=== PATIENT | male | born 1970 | race African-American/Black ===

== ENCOUNTER 2016-06-17 23:42 | Inpatient (IN) | payer MEDICARE, MEDICAID ==
[~2016-06-17] VITALS: Ht 185.4 cm; Wt 74.5 kg
[~2016-06-17 23:42] MED LIST: ASCO500T11 PO; MORP1TAB13 PO; NOR5T PO; OXYB5TAB62 PO; PAR20T PO; POLY33504 PO; SENN8.6T15 PO; TEMA7.5C11 PO
[2016-06-18 01:14] LABS: DEFINITIVE VIEW TRANSMISSION; Eosinophils # (auto) 0.1 uL; Eosinophils % (auto) 0.9 % (0.0-7.0); Hemoglobin 10.1 g/dL (13.5-17.5); Monocytes # (auto) 0.2 uL; Red Cell Distribution Width 17.3 % (11.6-16.0); SUSPECT VIEW TRANSMISSION
[2016-06-18 01:35] LABS: Albumin 2.4 g/dL (3.4-5.0)
[2016-06-18 01:40] LABS: Basophils # (auto) 0.7 uL; Basophils % (auto) 7.2 % (0.0-2.0); Hematocrit 33.2 % (41.0-53.0); Lymphocytes # (auto) 2.6 uL; Lymphocytes % (auto) 26.9 % (10.0-50.0); Mean Corpuscular Hemoglobin 21.5 pg (28.0-32.0); Mean Corpuscular Hgb Conc. 30.4 g/dL (32.0-36.0); Mean Corpuscular Volume 70.9 fL (80.0-100.0); Mean Platelet Volume 7.4 fL (7.4-10.4); Monocytes % (auto) 1.6 % (0.0-12.0); Neutrophils # (auto) 6.1 uL; Neutrophils % (auto) 63.4 % (37.0-80.0); White Blood Cell 9.7 10^3/uL (4.4-10.8)
[2016-06-18 01:43] LABS: Bilirubin, Total 0.2 mg/dL (0.2-1.0); Magnesium 2.2 mg/dL (1.6-2.6); Potassium 2.9 mmol/L (3.5-5.1); Total Protein 7.9 g/dL (6.4-8.2)
[2016-06-18 01:58] LABS: Platelet Count (auto) 967 10^3/uL (140-450)
[2016-06-18] MEDS ORDERED: POTASSIUM CHL 20 Meq TABLET PO ONE (02:30)
[2016-06-18] MEDS ORDERED: ACETAMINOPHEN 500 MG TAB PO ONE (07:30)
[2016-06-18] MEDS ORDERED: KETOROLAC TROMETH 30 MG/ML 1ML VIAL IV ONE (07:30)
[2016-06-18] MEDS ORDERED: SODIUM CHLORIDE 0.9% 1,000 ML IV ONE (07:30)
[2016-06-18 08:23] LABS: Urine Bilirubin Negative (Negative); Urine Blood 2+ /uL (Negative); Urine Color Yellow (Yellow); Urine Glucose Normal (Normal); Urine Hyaline Cast FEW /lpf (0 - 2); Urine Ketone Negative (Negative); Urine Nitrite Negative (Negative); Urine RBC 37 /hpf (0 - 3); Urine Squamous Epithelial Cell FEW /hpf (<5); Urine WBC Clumps PRESENT /hpf (None Seen); Urine pH 5.5 (5.0-8.0)
[2016-06-18] MEDS ORDERED: FLEET MINERAL OIL ENEMA 133 ML PR ONE (11:30)
[2016-06-18] MEDS ORDERED: cefTRIAXone 1GM/50ML D5W 50 ML IV ONE (11:30)
[2016-06-18] MEDS ORDERED: VANCOMYCIN PER PHARMACY 0 MG IV SCH (11:30)
[2016-06-18] MEDS: SODIUM CHLORIDE 0.9% 1,000 ML IV SCH (11:33)
[2016-06-18] MEDS ORDERED: ACETAMINOPHEN 325 MG TAB PO PRN (11:45)
[2016-06-18] MEDS ORDERED: TEMAZEPAM 15 MG CAP PO PRN (11:45)
[2016-06-18] MEDS ORDERED: ONDANSETRON HCL 4 MG/2 ML VIAL IV PRN (11:45)
[2016-06-18] MEDS ORDERED: PARoxetine 20 MG TAB PO ONE (12:00)
[2016-06-18] MEDS ORDERED: VANCOMYCIN 1GM/250ML D5W 250 ML IV SCH ×2 (13:00)
[2016-06-18 13:26] VITALS: BP_SYST 80; BP_SYST 85; BP_DIAS 51; BP_DIAS 52
[2016-06-18] MEDS: HYDROcodone-ACET 5/325MG TAB PO PRN ×2 (14:14→19:34)
[2016-06-18 15:23] VITALS: BP 82/54
[2016-06-18] MEDS: VANCOMYCIN 1GM/250ML D5W 250 ML IV SCH (17:02)
[2016-06-18 21:39] VITALS: BP 101/76
[2016-06-18] MEDS: MORPHINE SULF 30 mg ER tab PO SCH (22:00)
[2016-06-18] MEDS: ASCORBIC ACID 500 MG TAB PO SCH (22:56)
[2016-06-19] MEDS: VANCOMYCIN 1GM/250ML D5W 250 ML IV SCH ×2 (04:04→16:00)
[2016-06-19] MEDS: SODIUM CHLORIDE 0.9% 1,000 ML IV SCH ×2 (04:13→22:26)
[2016-06-19 04:36] VITALS: BP 101/66
[2016-06-19 06:20] LABS: Alkaline Phosphatase 122 U/L (45-117); Anion Gap 11 (5-15); Aspartate Aminotransferase 11 U/L (15-37); BUN/Creatinine Ratio 21.8; Bilirubin, Total 0.3 mg/dL (0.2-1.0); Blood Urea Nitrogen 12 mg/dL (7-18); Calcium 7.9 mg/dL (8.5-10.1); Carbon Dioxide 24 mmol/L (21-32); Chloride 105 mmol/L (98-107); GFR African American 207 mL/min; GFR Non-African American 171 mL/min; Glucose 72 mg/dL (74-106); Potassium 3.2 mmol/L (3.5-5.1); Sodium 140 mmol/L (136-145); Total Protein 6.4 g/dL (6.4-8.2)
[2016-06-19 08:00] VITALS: BP 90/66
[2016-06-19 08:39] LABS: DEFINITIVE VIEW TRANSMISSION; Hematocrit 27.6 % (41.0-53.0); Hemoglobin 8.6 g/dL (13.5-17.5); Mean Corpuscular Hemoglobin 21.9 pg (28.0-32.0); Mean Corpuscular Hgb Conc. 30.9 g/dL (32.0-36.0); Mean Corpuscular Volume 70.8 fL (80.0-100.0); Mean Platelet Volume 7.5 fL (7.4-10.4); Platelet Count (auto) 613 10^3/uL (140-450); Red Cell Distribution Width 19.3 % (11.6-16.0); SUSPECT VIEW TRANSMISSION
[2016-06-19 08:45] LABS: White Blood Cell 42.9 10^3/uL (4.4-10.8)
[2016-06-19 08:46] LABS: Metamyelocytes % 0; Myelocytes % 0; Promyelocytes % 0; Reactive Lymphocytes 0
[2016-06-19] MEDS ORDERED: cefTRIAXone 1GM/50ML D5W 50 ML IV SCH (09:00)
[2016-06-19 09:20] LABS: Hypochromia Slight; Platelet Estimate Markedly Increased
[2016-06-19] MEDS: POLYETHYLENE GLYCOL 17GM PWDR PO SCH (10:00)
[2016-06-19] MEDS ORDERED: POTASSIUM CHL 20 Meq TABLET PO ONE (10:15)
[2016-06-19] MEDS: HYDROcodone-ACET 5/325MG TAB PO PRN ×2 (11:31→17:20)
[2016-06-19 12:00] VITALS: BP 118/80
[2016-06-19] MEDS: PIPERACILLIN-TAZOB 3.375GM/D5W100ML IV SCH ×2 (12:00→18:24)
[2016-06-19] MEDS: ASCORBIC ACID 500 MG TAB PO SCH ×2 (13:27→22:26)
[2016-06-19] MEDS: MULTIPLE VITAMIN TAB PO SCH (13:27)
[2016-06-19] MEDS: ZINC SULFATE 220 MG CAP PO SCH (13:27)
[2016-06-19] MEDS: PARoxetine 20 MG TAB PO SCH (13:28)
[2016-06-19] MEDS: MORPHINE SULF 30 mg ER tab PO SCH ×2 (13:29→22:26)
[2016-06-19 16:00] VITALS: BP 126/69
[2016-06-19 22:00] VITALS: BP 116/79
[2016-06-20] MEDS: PIPERACILLIN-TAZOB 3.375GM/D5W100ML IV SCH ×4 (00:09→18:00)
[2016-06-20 04:09] LABS: DEFINITIVE VIEW TRANSMISSION; Hematocrit 26.7 % (41.0-53.0); Hemoglobin 8.1 g/dL (13.5-17.5); Mean Corpuscular Hemoglobin 21.6 pg (28.0-32.0); Mean Corpuscular Hgb Conc. 30.4 g/dL (32.0-36.0); Mean Corpuscular Volume 71.3 fL (80.0-100.0); Mean Platelet Volume 8.1 fL (7.4-10.4); Platelet Count (auto) 544 10^3/uL (140-450); Red Cell Distribution Width 18.8 % (11.6-16.0); SUSPECT VIEW TRANSMISSION; White Blood Cell 24.2 10^3/uL (4.4-10.8)
[2016-06-20 04:59] LABS: Metamyelocytes % 0; Myelocytes % 0; Promyelocytes % 0; Reactive Lymphocytes 0
[2016-06-20] MEDS: VANCOMYCIN 1GM/250ML D5W 250 ML IV SCH ×3 (05:21→21:29)
[2016-06-20] MEDS: HYDROcodone-ACET 5/325MG TAB PO PRN (05:22)
[2016-06-20 05:23] VITALS: BP 103/66
[2016-06-20 08:00] VITALS: BP 97/51
[2016-06-20 08:19] LABS: Hypochromia Slight; Platelet Estimate Increased
[2016-06-20] MEDS: POLYETHYLENE GLYCOL 17GM PWDR PO SCH (10:00)
[2016-06-20] MEDS: MULTIPLE VITAMIN TAB PO SCH (10:00)
[2016-06-20] MEDS: MORPHINE SULF 30 mg ER tab PO SCH ×2 (11:10→21:30)
[2016-06-20] MEDS: ASCORBIC ACID 500 MG TAB PO SCH ×2 (11:10→21:31)
[2016-06-20] MEDS: ZINC SULFATE 220 MG CAP PO SCH (11:10)
[2016-06-20] MEDS: PARoxetine 20 MG TAB PO SCH (11:11)
[2016-06-20 12:48] VITALS: BP 156/94
[2016-06-20] MEDS ORDERED: MORPHINE SULF INJ 2 MG/ML SYRINGE 1ML IV ONE (14:45)
[2016-06-20] MEDS ORDERED: LACTULOSE 20Gm/30ML SOLN PO ONE (15:15)
[2016-06-20 16:48] VITALS: BP 101/63
[2016-06-20] MEDS: LACTULOSE 20Gm/30ML SOLN PO SCH (18:00)
[2016-06-20] MEDS: SODIUM CHLORIDE 0.9% 1,000 ML IV SCH ×2 (19:27→21:44)
[2016-06-20 22:00] VITALS: BP 115/78
[2016-06-21] MEDS: PIPERACILLIN-TAZOB 3.375GM/D5W100ML IV SCH ×5 (00:21→23:53)
[2016-06-21] MEDS: LACTULOSE 20Gm/30ML SOLN PO SCH ×5 (00:21→23:53)
[2016-06-21] MEDS: VANCOMYCIN 1GM/250ML D5W 250 ML IV SCH ×3 (04:43→21:32)
[2016-06-21 05:23] VITALS: BP 92/60
[2016-06-21 06:18] LABS: Basophils # (auto) 0 uL; Basophils % (auto) 0.2 % (0.0-2.0); DEFINITIVE VIEW TRANSMISSION; Eosinophils # (auto) 0.3 uL; Eosinophils % (auto) 1.7 % (0.0-7.0); Hematocrit 27.5 % (41.0-53.0); Hemoglobin 8.4 g/dL (13.5-17.5); Lymphocytes # (auto) 1.3 uL; Lymphocytes % (auto) 8.7 % (10.0-50.0); Mean Corpuscular Hemoglobin 21.6 pg (28.0-32.0); Mean Corpuscular Hgb Conc. 30.6 g/dL (32.0-36.0); Mean Corpuscular Volume 70.6 fL (80.0-100.0); Mean Platelet Volume 8.2 fL (7.4-10.4); Monocytes # (auto) 0.4 uL; Monocytes % (auto) 2.8 % (0.0-12.0); Neutrophils # (auto) 12.5 uL; Neutrophils % (auto) 86.6 % (37.0-80.0); Platelet Count (auto) 545 10^3/uL (140-450); Red Cell Distribution Width 18.9 % (11.6-16.0); White Blood Cell 14.4 10^3/uL (4.4-10.8)
[2016-06-21 06:29] LABS: BUN/Creatinine Ratio 15.8; Calcium 7.7 mg/dL (8.5-10.1); Potassium 3.4 mmol/L (3.5-5.1)
[2016-06-21 09:00] VITALS: BP 115/83
[2016-06-21] MEDS: PARoxetine 20 MG TAB PO SCH (10:00)
[2016-06-21] MEDS: POLYETHYLENE GLYCOL 17GM PWDR PO SCH (10:00)
[2016-06-21] MEDS: ZINC SULFATE 220 MG CAP PO SCH (10:30)
[2016-06-21] MEDS: MULTIPLE VITAMIN TAB PO SCH (10:30)
[2016-06-21] MEDS: MORPHINE SULF 30 mg ER tab PO SCH ×2 (10:30→21:32)
[2016-06-21] MEDS: ASCORBIC ACID 500 MG TAB PO SCH ×2 (10:31→21:32)
[2016-06-21 13:00] VITALS: BP 141/95
[2016-06-21] MEDS ORDERED: MORPHINE SULF INJ 2 MG/ML SYRINGE 1ML IV ONE (14:30)
[2016-06-21 16:00] VITALS: BP 94/67
[2016-06-21 21:58] VITALS: BP 119/87
[2016-06-21] MEDS: SODIUM CHLORIDE 0.9% 1,000 ML IV SCH (22:53)
[2016-06-22 05:05] LABS: Basophils # (auto) 0 uL; Basophils % (auto) 0.5 % (0.0-2.0); DEFINITIVE VIEW TRANSMISSION; Eosinophils # (auto) 0.3 uL; Eosinophils % (auto) 3.7 % (0.0-7.0); Hematocrit 28.9 % (41.0-53.0); Hemoglobin 8.8 g/dL (13.5-17.5); Lymphocytes # (auto) 1.7 uL; Lymphocytes % (auto) 19.4 % (10.0-50.0); Mean Corpuscular Hemoglobin 21.7 pg (28.0-32.0); Mean Corpuscular Hgb Conc. 30.5 g/dL (32.0-36.0); Mean Corpuscular Volume 71.3 fL (80.0-100.0); Mean Platelet Volume 8.5 fL (7.4-10.4); Monocytes # (auto) 0.4 uL; Monocytes % (auto) 4.2 % (0.0-12.0); Neutrophils # (auto) 6.3 uL; Neutrophils % (auto) 72.2 % (37.0-80.0); Platelet Count (auto) 492 10^3/uL (140-450); Red Cell Distribution Width 18.6 % (11.6-16.0); White Blood Cell 8.7 10^3/uL (4.4-10.8)
[2016-06-22 05:33] VITALS: BP 123/84
[2016-06-22] MEDS: LACTULOSE 20Gm/30ML SOLN PO SCH ×3 (05:34→17:40)
[2016-06-22] MEDS: PIPERACILLIN-TAZOB 3.375GM/D5W100ML IV SCH ×3 (05:34→17:40)
[2016-06-22 09:27] VITALS: BP 139/92
[2016-06-22] MEDS: MORPHINE SULF 30 mg ER tab PO SCH ×2 (09:44→21:51)
[2016-06-22] MEDS: ASCORBIC ACID 500 MG TAB PO SCH ×2 (09:44→21:51)
[2016-06-22] MEDS: ZINC SULFATE 220 MG CAP PO SCH (09:44)
[2016-06-22] MEDS: MULTIPLE VITAMIN TAB PO SCH (09:44)
[2016-06-22] MEDS: POLYETHYLENE GLYCOL 17GM PWDR PO SCH (09:45)
[2016-06-22] MEDS: VANCOMYCIN 1GM/250ML D5W 250 ML IV SCH ×2 (09:45→21:51)
[2016-06-22] MEDS: PARoxetine 20 MG TAB PO SCH (09:48)
[2016-06-22] MEDS ORDERED: FLUCONAZOLE 100 MG TAB PO ONE (12:30)
[2016-06-22 13:35] VITALS: BP 118/91
[2016-06-22] MEDS: SODIUM CHLORIDE 0.9% 1,000 ML IV SCH (13:40)
[2016-06-22 16:37] VITALS: BP 162/105
[2016-06-22 16:50] VITALS: BP 147/90
[2016-06-22] MEDS: HYDROcodone-ACET 5/325MG TAB PO PRN (20:34)
[2016-06-22 22:00] VITALS: BP 126/89
[2016-06-23] MEDS: PIPERACILLIN-TAZOB 3.375GM/D5W100ML IV SCH ×4 (00:16→17:22)
[2016-06-23] MEDS: HYDROcodone-ACET 5/325MG TAB PO PRN (04:46)
[2016-06-23 05:00] VITALS: BP 121/89
[2016-06-23] MEDS: LACTULOSE 20Gm/30ML SOLN PO SCH ×3 (06:13→12:00)
[2016-06-23] MEDS: SODIUM CHLORIDE 0.9% 1,000 ML IV SCH (08:39)
[2016-06-23 09:00] VITALS: BP 96/74
[2016-06-23] MEDS ORDERED: FLUCONAZOLE 100 MG TAB PO SCH (10:00)
[2016-06-23] MEDS: PARoxetine 20 MG TAB PO SCH (10:15)
[2016-06-23] MEDS: ZINC SULFATE 220 MG CAP PO SCH (10:15)
[2016-06-23] MEDS: ASCORBIC ACID 500 MG TAB PO SCH (10:16)
[2016-06-23] MEDS: MORPHINE SULF 30 mg ER tab PO SCH (10:16)
[2016-06-23] MEDS: MULTIPLE VITAMIN TAB PO SCH (10:16)
[2016-06-23] MEDS: POLYETHYLENE GLYCOL 17GM PWDR PO SCH (10:17)
[2016-06-23 13:00] VITALS: BP 113/84
[2016-06-23] MEDS ORDERED: VANCOMYCIN 1GM/250ML D5W 250 ML IV SCH (21:00)
== END 2016-06-23 16:40 | disposition home or self-care (01) | DRG 871 ==
LOC: ER 23:49 → OVERFLOW 23:50 → CENTRAL 06-18 12:44
PROVIDERS: ADMIT Internal Medicine; ATTEND Internal Medicine Pulmonary Disease
DX: A41.81 Sepsis due to Enterococcus (principal); L89.314 Pressure ulcer of right buttock, stage 4; L89.154 Pressure ulcer of sacral region, stage 4; L89.894 Pressure ulcer of other site, stage 4; L89.893 Pressure ulcer of other site, stage 3; E43 Unspecified severe protein-calorie malnutrition; G82.20 Paraplegia, unspecified; J98.11 Atelectasis; N13.2 Hydronephrosis with renal and ureteral calculous obstruction; N39.0 Urinary tract infection, site not specified; B96.5 Pseudomonas (aeruginosa) (mallei) (pseudomallei) as the cause of diseases classified elsewhere; B95.2 Enterococcus as the cause of diseases classified elsewhere; D47.3 Essential (hemorrhagic) thrombocythemia; D63.8 Anemia in other chronic diseases classified elsewhere; E11.9 Type 2 diabetes mellitus without complications; E86.0 Dehydration; E87.6 Hypokalemia; F41.9 Anxiety disorder, unspecified; F17.210 Nicotine dependence, cigarettes, uncomplicated; I10 Essential (primary) hypertension; J44.9 Chronic obstructive pulmonary disease, unspecified; J45.909 Unspecified asthma, uncomplicated; K56.41 Fecal impaction; K76.89 Other specified diseases of liver; N31.9 Neuromuscular dysfunction of bladder, unspecified; L89.629 Pressure ulcer of left heel, unspecified stage; N35.9 Urethral stricture, unspecified; Z98.890 Other specified postprocedural states
CPT/HCPCS: 36415; 74176; 80048; 80053; 80202; 81001; 82565; 83605; 83690; 83735; 84132; 85007; 85025; 85027; 87040; 87077; 87081; 87086; 87088; 87186; 96361; 96365; 96375; J0696; J1642; J1885; J2543